=== PATIENT | male | born 1930 | race Caucasian/White ===

== ENCOUNTER 2016-05-28 10:14 | Emergency (ER) | payer MEDICARE, OTHER ==
[~2016-05-28 10:14] MED LIST: ACETAMINOPHEN325 MG PO; ADULT ASPIRIN81 MG PO; ADULT LOW DOSE81 M1 PO; ALBUTEROL INH 0.3 ML AERO NEB; ALLOPURINOL300 M1 PO; ALLOPURINOL300 MG PO; AMARYL2 MG PO; AMOXICILLIN875 MG PO; ASCRIPTIN 325325 MG; ASPIR-LOW81 MG PO; ATACAND16 MG; AUGMENTIN875 MG GT; CARVEDILOL3.125 MG PO; COLACE100 MG PO; COLCHICINE0.6 MG PO; COREG3.125 MG PO; COREG6.25 M1 PO; COUMADIN2.5 M1 PO; COUMADIN2.5 MG; COUMADIN2.5 MG PO; COUMADIN5 MG; COUMADIN5 MG PO; DAPTOMYCIN IV; ELIQUIS5 M1 PO; ENDOCET 5/325 T1 TAB PO; FLOMAX0.4 M1 PO; FLOMAX0.4 MG; FLOMAX0.4 MG PO; FUROSEMIDE20 MG PO; GLUCAGON IN1 MG/1 ML IM; GLUCAGON1 MG/KIT IM; GLUCOPHAGE500 MG PO; HUMULIN-R100 UNITS/ IM; HUMULIN-R100 UNITS/ SC; JANTOVEN; LASIX20 MG PO; LIDODERM30 EA TP; LISINOPRIL10 MG PO; LISINOPRIL2.5 M1 PO; LISINOPRIL5 M1 PO; LOMOTIL1 TAB PO; LOVENOX120 MG/0.8 SQ; MAG-AL PLUS XS30 ML PO; MAGNESIUM400 M2 PO; MAGNESIUM500 MG PO; MEGACE400 MG/10 PO; MELATONIN10 M7 PO; NORVASC5 M2 PO; NYSTATIN ORAL S60 M1 MT; OMEPRAZOLE40 M2 PO; OMEPRAZOLE40 MG PO; PREDNISONE2.5 M1 PO; PREDNISONE20 MG PO; PREDNISONE5 MG PO; PROTONIX40 MG PO; REMERON SOL15 MG/TAB PO; RIFAMPIN300 MG PO; RISPERDAL0.25 MG PO; SALINE LOCK MAIN1 EA IVP; SANTYL30 GM TP; SIMVASTATIN20 M1 PO; TRILEPTAL150 M2 PO; TYLENOL325 MG PO; TYLENOL500 MG PO; ULORIC40 MG PO; ULTRAM50 MG PO; VANCOMYCIN1 GM/100 M IV; VIBRAMYCIN100 M1 PO; ZOCOR20 M1 PO; [UNRECOGNIZED DRUG - OTHER] TOP
[2016-05-28] MEDS ORDERED: POTASSIUM CHLO10 ME1 PO (10:27)
[2016-05-28] MEDS ORDERED: LASIX40 M1 PO (10:28)
[2016-05-28] MEDS ORDERED: CEPHALEXIN500 M1 PO (12:41)
[2016-09-18] MEDS ORDERED: ZYLOPRIM100 M1 PO (12:20)
[2016-09-18] MEDS ORDERED: LEVAQUIN750 M1 PO (12:25)
[2016-09-18] MEDS ORDERED: VENTOLIN HFA18 G2 INH (12:27)
== END 2016-05-28 12:55 ==
LOC: EDMED 10:14
DX: S91.301A Unspecified open wound, right foot, initial encounter (principal); I25.10 Atherosclerotic heart disease of native coronary artery without angina pectoris; E11.9 Type 2 diabetes mellitus without complications; I10 Essential (primary) hypertension; Z95.1 Presence of aortocoronary bypass graft; Z95.5 Presence of coronary angioplasty implant and graft; Z87.891 Personal history of nicotine dependence; Z79.82 Long term (current) use of aspirin; Z79.899 Other long term (current) drug therapy; X58.XXXA Exposure to other specified factors, initial encounter